=== PATIENT | female | born 1995 | race Hispanic/Latino ===

== ENCOUNTER 2017-07-23 05:38 | Emergency (ER) | payer MEDICAID, OTHER ==
[2017-07-23] MEDS ORDERED: Ondansetron HCl/PF 4 MG/2 ML Vial ONE ×2 (06:25→10:52)
[2017-07-23] MEDS ORDERED: Acetaminophen 500 MG TAB ONE (06:25)
[2017-07-23 06:40] LABS: #Eosinphils 0.2 thou/uL (0.0-0.7); #Lymphocytes 1.9 thou/uL (1.20-3.40); #Monocytes 0.7 thou/uL (0.11-0.59); %Basophils 0.3 % (0.0-1.0); %Eosinophils 1.7 % (0.0-10.0); %Monocytes 6.1 % (0.0-10.0); Hematocrit 37.8 % (36.0-47.0); Mean Platelet Volume 8.6 fL (7.4-10.4); Red Blood Cell (RBC) Count 4.65 mill/uL (4.20-5.40); White Blood Cell (WBC) Count 11.8 thou/uL (4.8-10.8)
[2017-07-23 06:41] LABS: ALT (SGPT) 29 U/L (8-55); AST (SGOT) 31 U/L (5-34); Alkaline Phosphatase 138 U/L (40-150); Anion Gap 16 mmol/L (10-20); BUN (Urea Nitrogen) 16 mg/dL (7.0-18.7); Bilirubin, Total 0.6 mg/dL (0.2-1.2); Calc. Creatinine Clearance 0 mL/min (70-130); Calcium 9.4 mg/dL (7.8-10.44); Carbon Dioxide 21 mmol/L (22-29); Chloride 104 mmol/L (98-107); Estimated GFR-MDRD Greater than 90; Lipase 7 U/L (8-78); Protein, Total 7.9 g/dL (6.0-8.3)
[2017-07-23] MEDS ORDERED: Sodium Chloride 0.9% 100 ML ONE ×2 (08:59→09:54)
[2017-07-23] MEDS ORDERED: cefTRIAXone\\ROCEPHIN 1 GM VIAL ONE (08:59)
[2017-07-23] MEDS ORDERED: metroNIDAZOLE 500 MG/100 ML BAG ONE (09:00)
[2017-07-23] MEDS ORDERED: Bupivacaine HCl 0.5%/Epinephrine 1:200,000/PF 30 ml Vial ONE (10:19)
[2017-07-23] MEDS ORDERED: Fentanyl 100 MCG/2 ML VIAL ONE ×2 (10:22→11:40)
--- NOTE | 2017-07-23 10:27 | HP ---
CHIEF COMPLAINT: Appendicitis. HISTORY OF PRESENT ILLNESS: The patient is a 22-year-old female who is status post vaginal delivery 2 weeks ago, who now presents with pain in her right lower quadrant, described as sharp, 8 out of 1 0, does not radiate, associated with nausea, but no vomiting. No burning when she urinates, but it does cause abdominal pain. No fevers or chills. She never had this pain before. Denies history o f inflammatory bowel disease. PAST MEDICAL HISTORY: She denies. PAST SURGICAL HISTORY: She denies. MEDICINES TAKEN DAILY: None. ALLERGIES: No known drug allergies. SOCIAL HISTORY: No smoking, alcohol or other drugs. REVIEW OF SYSTEMS: Otherwise, negative unless described above. PHYSICAL EXAMINATION: HEENT: Sclerae are anicteric. Oropharynx clear. NECK: No lymphadenopathy. LUNGS: Clear. HEART: Regular rate and rhythm. ABDOMEN: Soft, diffuse abdominal guarding with rebound tenderness in the right lower quadrant. No abdominal or inguinal hernias. EXTREMITIES: No ischemia or edema to extremities. LABORATORY DATA AND IMAGING: White blood cell count is 11, hemoglobin is 12, platelet count is 347, sodium 137, potassium 3.9, creatinine 0.73, lipase 7. CT scan reveals dilated appendix, no evidenc e of perforation consistent with acute appendicitis. ASSESSMENT: Acute appendicitis. PLAN: Laparoscopic appendectomy. Risks, benefits, and alternatives discussed. She gives consent. We will do this today.
--- NOTE | 2017-07-23 10:27 | CT ---
CONTRAST ENHANCED CT IMAGES OF ABDOMEN AND PELVIS: HISTORY: Diffuse abdominal pain. FINDINGS: Contrast-enhanced CT images of the abdomen and pelvis demonstrate the lung bases to be unremarkable. No evidence of free intraperitoneal air seen. The liver, spleen, gallbladder, pancreas, adrenal glands, and kidneys were unremarkable. No evidenc e of bowel obstruction seen. The oral contrast was given. Not an adequate amount of time has passed to opacify the distal small bowel. There appears to be a circumferential tubular-type structure which may represent a dilated a ppendix with some peripheral wall of enhancement. This is concerning for possible early appendiciti s. Unfortunately, as mentioned above, the oral contrast is not in the distal small bowel to confirm this. No definite evidence of an abscess seen. IMPRESSION: Findings concerning for early appendicitis in a dilated appendix. Correlate with clinical exam. Findings discussed with Bhavya Conroy at 8:47 a.m. on 07/23/17. CODE CR POS: EVONNE
[2017-07-23] MEDS ORDERED: Glycopyrrolate 0.2 MG/ML 5 ML SYRINGE ONE (10:52)
[2017-07-23] MEDS ORDERED: Propofol 200 MG/20 ML VIAL ONE (10:52)
[2017-07-23] MEDS ORDERED: Dexamethasone 20 MG/5 ML VIAL ONE (10:52)
[2017-07-23] MEDS ORDERED: Lidocaine 2% PF 10 ML AMP (For Epidural Use) ONE (10:52)
[2017-07-23] MEDS ORDERED: Ketorolac Tromethamine 30 MG/ML VIAL ONE (10:52)
[2017-07-23] MEDS ORDERED: Meperidine HCl/PF 25 MG/ML VIAL ONE (12:05)
--- NOTE | 2017-07-23 16:16 | OP ---
DATE OF PROCEDURE: 07/23/2017 PREOPERATIVE DIAGNOSIS: Acute appendicitis. POSTOPERATIVE DIAGNOSIS: Acute appendicitis. PROCEDURE: Laparoscopic appendectomy. SURGEON: True Garza M.D. ANESTHESIA: General. ESTIMATED BLOOD LOSS: Minimal. COMPLICATIONS: None. SPECIMEN: Appendix. FINDINGS: Appendicitis. TECHNIQUE: The patient was taken to the operating room and placed supine on the table. After gener al anesthetic was obtained, a Mcgee was placed. The abdomen was shaved, prepped, and draped in a st erile fashion. Curved incision made below the umbilicus. Cautery was used to dissect down to and s core the fascia. Abdominal cavity entered bluntly using a Digna clamp. Holding stitch of PDS was p laced on each side of the fascia. Horan trocar was placed. High-flow pneumoperitoneum was obtaine d. A suprapubic 5-mm port and a left lower quadrant 5-mm port were placed under direct visualizatio n. The cecum was rolled over to reveal acute nonperforated appendicitis. A window was made at the base of the appendix in the mesoappendix. Laparoscopic stapler was fired across the base of the archana endix. A vascular reload was fired across the mesoappendix. Appendix was placed in an Endo catch b ag and brought out through the Horan. There was no bleeding in the right lower quadrant. The righ t lower quadrant was irrigated using sterile solution until returns were clear. All port sites were infiltrated using local anesthetic. All ports were removed under camera visualization without blee ding. Pneumoperitoneum was let down. PDS was used to close the fascial defect below the umbilicus. All incisions were irrigated and closed using 4-0 Monocryl and Dermabond. The patient went to rec overy in stable condition. All instrument counts, needle counts, and lap counts were correct.
[2017-07-23] MEDS ORDERED: ISOVUE-370 76%-LOCM 1 ML ONE (16:43)
[2017-07-23] MEDS ORDERED: Iopamidol 370 76% 50 ML VIAL FS ONE (16:43)
== END 2017-07-23 13:45 | disposition home or self-care (01) ==
LOC: ERS 05:38
DX: K37 Unspecified appendicitis (principal)
CPT/HCPCS: 74177; 80053; 83605; 83690; 85025; 87040; 88304; 96361; 96365; 96374; 96375; J0670; J0694; J0696; J1100; J1170; J1885; J2001; J2175; J2270; J2405; J2704; J3010; J7050